=== PATIENT | female | born 1970 | race Caucasian/White ===

== ENCOUNTER 2018-09-25 10:52 | Emergency (ER) | payer MEDICAID, OTHER ==
[~2018-09-25] VITALS: Ht 165.1 cm; Wt 67.0 kg
[2018-09-25 10:56] VITALS: BP 122/65; PULSE 63; RESP 18; Ht 165.1 cm; Wt 67.0 kg
[2018-09-25] MEDS ORDERED: DEXAMETHASONE 4 MG TAB PO ONE (11:30)
[2018-09-25] MEDS ORDERED: ACETAMINOPHEN 325 MG TAB PO ONE (12:00)
[2018-09-25] MEDS ORDERED: D-ME473S2 PO (12:01)
[2018-09-25] MEDS ORDERED: IBUP-1542 PO (12:01)
--- NOTE | 2018-09-25 12:10 | ERD ---
ER Documentation Chief Complaint Chief Complaint cough x 5 days HPI This 48-year-old female presents with cough for last week. She has no fevers and cough is nonproductive. She has mild sore throat as well. Denies any chest pain, vomiting, abdominal pain, urinary complaints. She is here with her spouse with similar symptoms. ROS All systems reviewed and are negative except as per history of present illness. Medications Home Meds Active Scripts Ibuprofen* (Motrin*) 600 Mg Tab, 600 MG PO Q6, #20 TAB Prov:JUAN R ACOSTA MD 09/25/18 Dextromethorphan Hb-Promethazine Hcl* (Promethazine DM* Syrup) 473 Ml Syrup, 5 ML PO Q6 PRN for COUGH for 5 Days, ML Prov:JUAN R ACOSTA MD 09/25/18 Allergies Allergies: Coded Allergies: No Known Allergy (Unverified , 09/25/18) PMhx/Soc Medical and Surgical Hx: pt denies Medical Hx, pt denies Surgical Hx History of Surgery: No Anesthesia Reaction: No Hx Neurological Disorder: No Hx Respiratory Disorders: No Hx Cardiac Disorders: No Hx Psychiatric Problems: No Hx Miscellaneous Medical Probl: No (Denies medical history) Hx Alcohol Use: No Hx Substance Use: No Hx Tobacco Use: No Smoking Status: Never smoker FmHx Family History: No diabetes, No coronary disease, No other Physical Exam Vitals Vital Signs Date Temp Pulse Resp B/P (MAP) Pulse Ox O2 O2 Flow FiO2 Time Delivery Rate 09/25/18 99.0 63 18 122/65 97 10:56 (84) Physical Exam Const: No acute distress Head: Atraumatic Eyes: Normal Conjunctiva ENT: Normal External Ears, Nose and Mouth. TMs and oropharynx normal. Neck: Full range of motion. No meningismus. Resp: Clear to auscultation bilaterally. Dry cough with minimal forced wheeze. No rales or retractions or significant wheeze at rest. Cardio: Regular rate and rhythm, no murmurs Abd: Soft, non tender, non distended. Normal bowel sounds Skin: No petechiae or rashes Back: No midline or flank tenderness Ext: No cyanosis, or edema Neur: Awake and alert Psych: Normal Mood and Affect Results 24 hrs Current Medications Medications Dose Sig/Gabo Start Time Status Last (Trade) Ordered Route PRN Stop Time Admin Dose Reason Admin 8 mg ONCE ONCE 09/25/18 DC 09/25/18 Dexamethasone PO 11:30 11:25 (Decadron) 09/25/18 11:31 650 mg ONCE ONCE 09/25/18 DC 09/25/18 Acetaminophen PO 12:00 11:36 (Tylenol 09/25/18 12:01 Tab) Procedures/MDM Chest X-ray 1V Interpreted by me: Soft Tissue: No acute abnormalities Bones: No acute abnormalities Mediastinum/Cardiac Silhouette/Lungs: No acute abnormalities. Impression- normal 1 view chest x-ray Your symptoms for the last week. She is given Decadron 8 mg by mouth for minimal forced wheeze. She has no evidence of hypoxemia, respiratory distress. She will be treated with promethazine, ibuprofen, primary care follow-up and return precautions. The patient was stable with no new complaints during the ER course. Clinically, there is no current evidence to suggest meningitis, sepsis, acute abdomen, pneumonia, stroke, acute coronary syndrome, pulmonary embolism, aortic dissection or any other emergent condition appearing to require further evaluation or hospitalization. Patient counseled regarding my diagnostic impression and care plan. Prior to discharge all questions answered. Pt agrees with treatment plan and understands strict return precautions. Pt is instructed to follow up with primary care provider within 24-48 hours. Precautionary instructions provided including instructions to return to the ER if not improving or for any worsening or changing symptoms or concerns. Departure Diagnosis: Primary Impression: Cough Condition: Stable Patient Instructions: Uri, Viral, No Abx (Adult) Referrals: NO PRIMARY,CARE PHYSICIAN (PCP) Additional Instructions: X-ray normal. Probablamente un virus que dura 2-4 العلي. cheque otro vez en el proximo [place] para mas simptomas- vomito, dolor, marilee, problemas con respirando, o con coburn doctor primario. JUAN R ACOSTA MD Sep 25, 2018 12:10
[2018-09-25] MEDS ORDERED: AZIT250T PO (12:19)
== END 2018-09-25 12:19 | disposition home or self-care (01) ==
LOC: FTE 10:52
DX: R05 Cough (principal)
CPT/HCPCS: 71045; Z7502; Z7610